=== PATIENT | male | born 1970 | race Caucasian/White ===

== ENCOUNTER 2017-12-20 13:43 | Inpatient (IN) | payer MEDICAID, OTHER ==
[~2017-12-20] VITALS: Ht 177.8 cm; Wt 138.0 kg
[~2017-12-20 13:43] MED LIST: ASPI-621 PO; ASPI300S PO; FURO-92 PO; LISI-170 PO; METF100P3 PO; METF500T4 PO; OMEG1CAP25 PO
[2017-12-20] MEDS ORDERED: ALBUTEROL/IPRATROPIUM 2.5MG/0.5MG, 3 ML ONE (14:22)
[2017-12-20] MEDS ORDERED: SODIUM CHLORIDE 0.9% 1,000ML IVBOLUS ONE (14:30)
[2017-12-20] MEDS ORDERED: ACETAMINOPHEN 500 MG TABLET PO ONE (14:30)
[2017-12-20] MEDS ORDERED: ALBUTEROL/IPRATROPIUM 2.5MG/0.5MG, 3 ML NPPB ONE (14:30)
[2017-12-20] MEDS ORDERED: SODIUM CHLORIDE FLUSH 10ML SYR IVF ONE (14:30)
[2017-12-20] MEDS ORDERED: ACETAMINOPHEN 500 MG TABLET ONE (14:31)
[2017-12-20 14:43] LABS: MEAN CORPUSCULAR HEMOGLOBIN 28.7 pg (27.5-34.5); MEAN CORPUSCULAR HGB CONC 33.1 g/dL (33.2-36.2); MEAN CORPUSCULAR VOLUME 86.9 fL (81-97); MEAN PLATELET VOLUME 7.6 fL (7.4-10.4); PLATELET COUNT 275 x10^3/uL (130-400); RED BLOOD COUNT 5.75 x10^6/uL (4.38-5.82); RED CELL DISTRIBUTION WIDTH 13.4 % (9.4-14.8)
[2017-12-20 14:44] LABS: INTERNATIONAL NORMALIZED RATIO 1.42 (0.93-1.1); PROTHROMBIN TIME 14.7 Seconds (9.6-11.5)
[2017-12-20 14:48] LABS: ALANINE AMINOTRANSFERASE 44 U/L (12-78); ALBUMIN 2.7 g/dL (3.4-5.0); ANION GAP 11 mmol/L (5-15); CALCIUM 7.9 mg/dL (8.5-10.1); CHLORIDE 93 mmol/L (98-107); CREATININE 1.41 mg/dL (0.7-1.3)
[2017-12-20 14:50] LABS: ALKALINE PHOSPHATASE 89 U/L (45-117); BILIRUBIN,TOTAL 3.3 mg/dL (0.2-1.0); TOTAL PROTEIN 7.9 g/dL (6.4-8.2)
[2017-12-20] MEDS ORDERED: CEFTRIAXONE PMX 2GM/50ML 50 ML ONE (14:59)
[2017-12-20 15:00] LABS: MD YES
[2017-12-20] MEDS ORDERED: CEFTRIAXONE PMX 2GM/50ML 50 ML IV SCH (15:00)
[2017-12-20] MEDS ORDERED: AZITHROMYCIN 500 MG in SODIUM CHLORIDE 0.9% 250 ML IV ONE (15:00)
[2017-12-20 15:03] LABS: BAND#(MANUAL) 1.89 x10^3/uL; BANDS%(MANUAL) 10 % (0-7); LYMPH#(MANUAL) 0.76 x10^3/uL (1-3.4); LYMPHS% (MANUAL) 4 % (22-44); MONOS#(MANUAL) 0.38 x10^3/uL (0.3-2.7); MONOS% (MANUAL) 2 % (2-9); POLYCHROMASIA 1+; SEG#(MANUAL) 15.88 x10^3/uL (1.8-6.8); SEGS% (MANUAL) 84 % (42-75)
[2017-12-20 15:04] LABS: <PLATELET ESTIMATE> ADEQUATE; <PLT MORPHOLOGY> NORMAL PLT MORPH; TOXIC GRAN 1+
[2017-12-20] MEDS: SODIUM CHLORIDE 0.9% 1,000 ML IV SCH ×2 (15:10→22:25)
[2017-12-20] MEDS ORDERED: LEVOFLOXACIN/PMX 750MG/150ML 150 ML IV SCH (15:30)
[2017-12-20] MEDS ORDERED: TEMAZEPAM 15 MG CAPSULE PO PRN (15:30)
[2017-12-20] MEDS ORDERED: SODIUM CHLORIDE 0.9% 3,050 ML IV ONE (15:30)
[2017-12-20] MEDS ORDERED: PHARMACY MAY ADJ FOR RENAL FX MC PRN (15:30)
[2017-12-20 16:42] VITALS: BP 110/75
[2017-12-20 16:53] VITALS: BP 110/75
[2017-12-20] MEDS: ENOXAPARIN 40 MG/0.4 ML SQ SCH (17:31)
[2017-12-20] MEDS: INSULIN LISPRO 100 UNITS/ML, PEN SQ-INSULIN SCH ×2 (17:44→20:19)
[2017-12-20 19:43] LABS: CULTURE INDICATED? YES; MICROSCOPIC INDICATED
[2017-12-20 20:12] VITALS: BP 124/82
[2017-12-20] MEDS ORDERED: ALBUTEROL/IPRATROPIUM 2.5MG/0.5MG, 3 ML NPPB PRN (20:30)
[2017-12-20] MEDS: ALBUTEROL/IPRATROPIUM 2.5MG/0.5MG, 3 ML NPPB SCH (20:35)
[2017-12-20] MEDS: ACETAMINOPHEN 325 MG TABLET PO PRN (22:27)
[2017-12-21 01:41] VITALS: BP 128/75
[2017-12-21 05:54] LABS: MEAN CORPUSCULAR HEMOGLOBIN 29.5 pg (27.5-34.5); MEAN CORPUSCULAR HGB CONC 33.6 g/dL (33.2-36.2); MEAN CORPUSCULAR VOLUME 87.8 fL (81-97); MEAN PLATELET VOLUME 7.3 fL (7.4-10.4); PLATELET COUNT 246 x10^3/uL (130-400); RED BLOOD COUNT 4.64 x10^6/uL (4.38-5.82); RED CELL DISTRIBUTION WIDTH 13.6 % (9.4-14.8)
[2017-12-21 05:58] LABS: ANION GAP 7 mmol/L (5-15); CALCIUM 7.3 mg/dL (8.5-10.1); CHLORIDE 100 mmol/L (98-107); CREATININE 0.97 mg/dL (0.7-1.3)
[2017-12-21 06:16] LABS: MD YES
[2017-12-21 06:18] LABS: BAND#(MANUAL) 1.04 x10^3/uL; BANDS%(MANUAL) 7 % (0-7); LYMPH#(MANUAL) 0.45 x10^3/uL (1-3.4); LYMPHS% (MANUAL) 3 % (22-44); MONOS% (MANUAL) 4 % (2-9); POLYCHROMASIA 1+; SEG#(MANUAL) 12.81 x10^3/uL (1.8-6.8); SEGS% (MANUAL) 86 % (42-75)
[2017-12-21 06:19] LABS: <PLATELET ESTIMATE> ADEQUATE; <PLT MORPHOLOGY> NORMAL PLT MORPH; TOXIC GRAN 1+
[2017-12-21] MEDS: INSULIN LISPRO 100 UNITS/ML, PEN SQ-INSULIN SCH ×4 (08:02→22:42)
[2017-12-21] MEDS: ASPIRIN 81 MG TABLET EC PO SCH (08:02)
[2017-12-21] MEDS: SODIUM CHLORIDE 0.9% 1,000 ML IV SCH ×2 (08:09→22:31)
[2017-12-21 08:37] VITALS: BP 121/79
[2017-12-21] MEDS: CEFTRIAXONE PMX 2GM/50ML 50 ML IV SCH (09:16)
[2017-12-21] MEDS: ACETAMINOPHEN 325 MG TABLET PO PRN (09:16)
[2017-12-21] MEDS: AZITHROMYCIN 500 MG in SODIUM CHLORIDE 0.9% 250 ML IV SCH (10:48)
[2017-12-21] MEDS: ALBUTEROL/IPRATROPIUM 2.5MG/0.5MG, 3 ML NPPB SCH ×3 (11:00→20:45)
[2017-12-21 15:16] VITALS: BP 148/81
[2017-12-21] MEDS: ENOXAPARIN 40 MG/0.4 ML SQ SCH (15:39)
[2017-12-21 19:18] VITALS: BP 131/83
[2017-12-22] MEDS: ALBUTEROL/IPRATROPIUM 2.5MG/0.5MG, 3 ML NPPB SCH ×5 (01:01→19:21)
[2017-12-22 02:32] VITALS: BP 125/79
[2017-12-22 05:16] LABS: MEAN CORPUSCULAR HEMOGLOBIN 29.1 pg (27.5-34.5); MEAN CORPUSCULAR HGB CONC 33.1 g/dL (33.2-36.2); MEAN CORPUSCULAR VOLUME 87.9 fL (81-97); MEAN PLATELET VOLUME 7.6 fL (7.4-10.4); PLATELET COUNT 275 x10^3/uL (130-400); RED BLOOD COUNT 4.79 x10^6/uL (4.38-5.82); RED CELL DISTRIBUTION WIDTH 13.6 % (9.4-14.8)
[2017-12-22 05:24] LABS: ANION GAP 7 mmol/L (5-15); CALCIUM 7.5 mg/dL (8.5-10.1); CHLORIDE 102 mmol/L (98-107)
[2017-12-22 05:28] LABS: ALANINE AMINOTRANSFERASE 34 U/L (12-78); ALKALINE PHOSPHATASE 79 U/L (45-117); BILIRUBIN,TOTAL 0.9 mg/dL (0.2-1.0)
[2017-12-22 05:51] LABS: MD YES
[2017-12-22 05:53] LABS: <RBC MORPHOLOGY> NORMAL; BAND#(MANUAL) 0.25 x10^3/uL; BANDS%(MANUAL) 2 % (0-7); LYMPH#(MANUAL) 1.85 x10^3/uL (1-3.4); LYMPHS% (MANUAL) 15 % (22-44); MONOS#(MANUAL) 0.62 x10^3/uL (0.3-2.7); MONOS% (MANUAL) 5 % (2-9); MYELOCYTES# (MANUAL) 0.12 x10^3/uL (0-0); MYELOCYTES% (MANUAL) 1 % (0-0); SEG#(MANUAL) 9.47 x10^3/uL (1.8-6.8); SEGS% (MANUAL) 77 % (42-75)
[2017-12-22 05:54] LABS: <PLATELET ESTIMATE> ADEQUATE; <PLT MORPHOLOGY> NORMAL PLT MORPH
[2017-12-22] MEDS: SODIUM CHLORIDE 0.9% 1,000 ML IV SCH (06:27)
[2017-12-22] MEDS: INSULIN LISPRO 100 UNITS/ML, PEN SQ-INSULIN SCH ×4 (07:11→22:23)
[2017-12-22 07:21] VITALS: BP 137/90
[2017-12-22] MEDS: ASPIRIN 81 MG TABLET EC PO SCH (07:41)
[2017-12-22 08:46] LABS: HEMOGLOBIN A1C 8.5 % (4.2-6.3)
[2017-12-22] MEDS: CEFTRIAXONE PMX 2GM/50ML 50 ML IV SCH (09:35)
[2017-12-22] MEDS: AZITHROMYCIN 500 MG in SODIUM CHLORIDE 0.9% 250 ML IV SCH (10:26)
[2017-12-22 13:02] VITALS: BP 137/87
[2017-12-22] MEDS: ENOXAPARIN 40 MG/0.4 ML SQ SCH (15:45)
[2017-12-22] MEDS ORDERED: POTASSIUM PHOSPHATE 44 MEQ in SODIUM CHLORIDE 0.9% 500 ML IV ONE (17:30)
[2017-12-22] MEDS ORDERED: MAGNESIUM SULFATE PMX 2GM/50ML 50 ML IV ONE (17:30)
[2017-12-22] MEDS ORDERED: POTASSIUM CHLORIDE 20 MEQ TAB.ER.PRT PO ONE (17:30)
[2017-12-22 19:04] VITALS: BP 146/91
[2017-12-23] MEDS: SODIUM CHLORIDE 0.9% 1,000 ML IV SCH ×2 (00:34→20:34)
[2017-12-23 01:23] VITALS: BP 121/79
[2017-12-23 05:11] LABS: ANION GAP 8 mmol/L (5-15); CALCIUM 7.2 mg/dL (8.5-10.1); CHLORIDE 104 mmol/L (98-107); CREATININE 0.64 mg/dL (0.7-1.3)
[2017-12-23] MEDS: INSULIN LISPRO 100 UNITS/ML, PEN SQ-INSULIN SCH ×4 (07:00→20:34)
[2017-12-23] MEDS: ALBUTEROL/IPRATROPIUM 2.5MG/0.5MG, 3 ML NPPB SCH ×4 (07:25→20:00)
[2017-12-23 08:06] VITALS: BP 150/82
[2017-12-23] MEDS: CEFTRIAXONE PMX 2GM/50ML 50 ML IV SCH (09:00)
[2017-12-23] MEDS: ASPIRIN 81 MG TABLET EC PO SCH (09:00)
[2017-12-23] MEDS: AZITHROMYCIN 500 MG in SODIUM CHLORIDE 0.9% 250 ML IV SCH (10:14)
[2017-12-23 12:41] VITALS: BP 132/74
[2017-12-23] MEDS: methylPREDNISolone SOD SUCC 125 MG/2 ML IVPush SCH ×2 (13:23→20:34)
[2017-12-23] MEDS: GUAIFENESIN 100 MG/5 ML, 10ML UDC PO SCH ×3 (13:23→21:00)
[2017-12-23] MEDS: ENOXAPARIN 40 MG/0.4 ML SQ SCH (16:20)
[2017-12-23 20:00] VITALS: BP 153/90
[2017-12-24 01:00] VITALS: BP 143/96
[2017-12-24] MEDS: methylPREDNISolone SOD SUCC 125 MG/2 ML IVPush SCH ×3 (01:35→13:35)
[2017-12-24] MEDS: ALBUTEROL/IPRATROPIUM 2.5MG/0.5MG, 3 ML NPPB SCH ×3 (01:40→11:00)
[2017-12-24] MEDS: SODIUM CHLORIDE 0.9% 1,000 ML IV SCH (06:29)
[2017-12-24] MEDS: ASPIRIN 81 MG TABLET EC PO SCH (08:23)
[2017-12-24] MEDS: GUAIFENESIN 100 MG/5 ML, 10ML UDC PO SCH (08:23)
[2017-12-24] MEDS: INSULIN LISPRO 100 UNITS/ML, PEN SQ-INSULIN SCH ×2 (08:24→12:02)
[2017-12-24] MEDS: CEFTRIAXONE PMX 2GM/50ML 50 ML IV SCH (08:26)
[2017-12-24 08:28] VITALS: BP 152/100
[2017-12-24] MEDS: AZITHROMYCIN 500 MG in SODIUM CHLORIDE 0.9% 250 ML IV SCH (10:52)
[2017-12-24 13:30] VITALS: BP 141/87
[2017-12-24] MEDS ORDERED: TIOT18CA INH (13:43)
[2017-12-24] MEDS ORDERED: GUAI600T80 PO (13:43)
[2017-12-24] MEDS ORDERED: PRED10TA PO (13:43)
[2017-12-24] MEDS ORDERED: IPRA3AMP NPPB (13:43)
[2017-12-24] MEDS ORDERED: AZIT500T PO (13:43)
[2017-12-24] MEDS ORDERED: FLUT1AER INH (13:43)
[2017-12-24] MEDS ORDERED: CEFD300C37 PO (13:43)
[2017-12-24 14:36] VITALS: BP 153/80
== END 2017-12-24 15:30 | disposition home or self-care (01) | DRG 871 ==
LOC: ED 15:09 → EDIP 15:10 → SUATTDRO 15:10 → 4NOR 16:35 → DCLOUNGE 12-24 15:17
PROVIDERS: ADMIT Hospitalist; ATTEND Internal Medicine
DX: A41.9 Sepsis, unspecified organism (principal); J15.9 Unspecified bacterial pneumonia; J96.01 Acute respiratory failure with hypoxia; N17.0 Acute kidney failure with tubular necrosis; J44.0 Chronic obstructive pulmonary disease with (acute) lower respiratory infection; N39.0 Urinary tract infection, site not specified; J44.1 Chronic obstructive pulmonary disease with (acute) exacerbation; E11.65 Type 2 diabetes mellitus with hyperglycemia; E83.39 Other disorders of phosphorus metabolism; E83.42 Hypomagnesemia; E87.6 Hypokalemia; I25.10 Atherosclerotic heart disease of native coronary artery without angina pectoris; R65.20 Severe sepsis without septic shock; Z80.1 Family history of malignant neoplasm of trachea, bronchus and lung; Z83.3 Family history of diabetes mellitus; Z87.891 Personal history of nicotine dependence; Z95.1 Presence of aortocoronary bypass graft
CPT/HCPCS: 36415; 71045; 80048; 80053; 81001; 82962; 83036; 83605; 83735; 84100; 84145; 85025; 85610; 85730; 87040; 87070; 87086; 87181; 87205; 93005; 94640; 96361; 96365; 96375; J0456; J0696; J1650; J1956; J7620; J1815; J2930; J3475; J7030; J7040; J7050

== ENCOUNTER 2018-10-19 18:52 | Inpatient (IN) | payer OTHER ==
[~2018-10-19] VITALS: Ht 177.8 cm; Wt 139.1 kg
[~2018-10-19 18:52] MED LIST changes: -ASPI-621 PO; +ASPI81TA45 PO; +AZIT500T PO; +CEFD300C37 PO; +FLUT1AER INH; +GUAI600T80 PO; +IPRA3AMP30 NPPB; +METF500T17 PO; -METF500T4 PO; +PRED10TA PO; +TIOT18CA INH
--- NOTE | 2018-10-19 19:15 | NUR ---
PT STATES HE HAS GAINED 20 POUNDS IN THE LAST TWO MONTHS WITH SOB WITH EXERTION
[2018-10-19] MEDS ORDERED: CLOP75TA PO (19:26)
[2018-10-19] MEDS ORDERED: DIGO125T PO (19:26)
[2018-10-19] MEDS ORDERED: GLYB5TAB3 PO (19:26)
[2018-10-19] MEDS ORDERED: CARV3.122 PO (19:26)
[2018-10-19] MEDS ORDERED: SPIR25TA5 PO (19:26)
[2018-10-19] MEDS ORDERED: METF500T17 PO (19:26)
[2018-10-19] MEDS ORDERED: SODIUM CHLORIDE 0.9% 1,000 ML IV ONE (19:27)
--- NOTE | 2018-10-19 19:27 | NUR ---
PA AT BEDSIDE. TAKEN OFF OXYGEN MOMENTARILY WITH OXYGEN SATURATION 88 PERCENT. PLACED BACK ON OXYGEN. PT SPEAKING IN FULL SENTENCES, MILD WOB NOTED
[2018-10-19] MEDS ORDERED: ALBUTEROL/IPRATROPIUM 2.5MG/0.5MG, 3 ML NPPB SCH (19:30)
[2018-10-19] MEDS ORDERED: ASPIRIN 81 MG TABLET CHEW PO ONE (19:30)
[2018-10-19] MEDS ORDERED: ALBUTEROL/IPRATROPIUM 2.5MG/0.5MG, 3 ML ONE (19:38)
[2018-10-19 20:00] LABS: BASOPHILS # (AUTO) 0.03 x10^3/uL (0-0.1); BASOPHILS % (AUTO) 1 % (0-1); EOSINOPHILS # (AUTO) 0.15 x10^3/uL (0-0.4); EOSINOPHILS % (AUTO) 2 % (1-7); LYMPHOCYTES # (AUTO) 1.06 x10^3/uL (1-3.4); LYMPHOCYTES % (AUTO) 18 % (22-44); MD NO; MEAN CORPUSCULAR HEMOGLOBIN 26.8 pg (27.5-34.5); MEAN CORPUSCULAR HGB CONC 31.4 g/dL (33.2-36.2); MEAN CORPUSCULAR VOLUME 85.2 fL (81-97); MEAN PLATELET VOLUME 7.5 fL (7.4-10.4); MONOCYTES # (AUTO) 0.41 x10^3/uL (0.2-0.8); MONOCYTES % (AUTO) 7 % (2-9); NEUTROPHILS # (AUTO) 4.31 x10^3/uL (1.8-6.8); NEUTROPHILS % (AUTO) 72 % (42-75); PLATELET COUNT 253 x10^3/uL (130-400); RED BLOOD COUNT 6.47 x10^6/uL (4.38-5.82); RED CELL DISTRIBUTION WIDTH 16.2 % (9.4-14.8)
[2018-10-19 20:01] LABS: ALBUMIN 3.2 g/dL (3.4-5.0); ANION GAP 1 mmol/L (5-15); CALCIUM 8.5 mg/dL (8.5-10.1); CHLORIDE 104 mmol/L (98-107); CREATININE 1.08 mg/dL (0.7-1.3)
[2018-10-19 20:05] LABS: TROPONIN I 0.116 ng/mL (0.000-0.045)
[2018-10-19] MEDS ORDERED: ASPIRIN 81 MG TABLET CHEW ONE (20:43)
--- NOTE | 2018-10-19 20:49 | NUR ---
PT AMBULATED TO BATHROOM WITH MILD SOB WITH EXERTION. MEDICATED PER ORDERS WITH FLUIDS INFUSING. REPORT TO CUCO AGRAWAL
--- NOTE | 2018-10-19 20:52 | NUR ---
RECEIVED REPORT FROM KAYCEE AGRAWAL. CARE ASSUMED. PT RESTING IN POSITION OF COMFORT. DENIES ANY PAIN AND NEED TO USE RESTROOM. VSS. AWAITING RECHECK. A&OX4. SR ON MONITOR. CALL LIGHT IN REACH. FALL PRECAUTIONS IN PLACE.
--- NOTE | 2018-10-19 21:00 | NUR ---
DR. BURT AT BEDSIDE FOR RECHECK, DISCUSSING POC. PT TO BE ADMITTED TO HOSPITAL VERBALIZED UNDERSTANDING AND AGREES TO POC. IVF DISCONTINUED AT THIS TIME PER DR. BURT. VSS. CALL LIGHT IN REACH
[2018-10-19] MEDS ORDERED: FUROSEMIDE 40 MG/4 ML ONE (21:08)
--- NOTE | 2018-10-19 21:16 | NUR ---
PT MEDICATED NOTED PER MD ORDER WITH IV LASIX, URINAL LEFT PER PT REQUEST, TO CALL FOR ASSISTANCE. RESTING COMFORTABLY WATCHING TV. VSS. CALL LIGHT IN REACH. SR ON MONITOR.
[2018-10-19] MEDS ORDERED: FUROSEMIDE 40 MG/4 ML IV ONE (21:30)
[2018-10-19] MEDS ORDERED: SODIUM CHLORIDE FLUSH 10ML SYR IVF PRN (21:30)
--- NOTE | 2018-10-19 22:04 | NUR ---
ADMITTING PROVIDER AT BEDSIDE FOR EVALUATION. PT RESTING IN POSITION OF COMFORT. VSS. CALL LIGHT IN REACH. DENIES ANY PAIN AND NEED TO USE RESTROOM. SR ON MONITOR.
--- NOTE | 2018-10-19 22:07 | NUR ---
PT CALLED, MD OWENS COMPLETED. PT REQUESTING URINAL, 500ML URINE OUTPUT, RESTING COMFORTABLY BACK IN BED. CALL LIGHT IN REACH.
--- NOTE | 2018-10-19 22:35 | NUR ---
PT ASSISTED WITH URINAL, 500ML OUTPUT. CALL LIGHT IN REACH. RESTING COMFORTABLY. VSS.
--- NOTE | 2018-10-19 23:00 | NUR ---
PT ASSISTED WITH URINAL 600ML OUTPUT. VSS. CALL LIGHT IN REACH. ALL NEEDS MET AND ADDRESSED
--- NOTE | 2018-10-19 23:20 | NUR ---
PT SLEEPING,RESP REGULAR AND UNLABORED. VSS. CALL LIGHT IN REACH. FALL PRECAUTIONS IN PLACE. ROOM RECEIVED ON FLOOR, 522-2.
--- NOTE | 2018-10-19 23:27 | NUR ---
VERBAL/PHONE TO MITESH AGRAWAL FOR ROOM 522-2. PT AWAITING TRANSPORT.
[2018-10-19 23:56] VITALS: BP 159/90
[2018-10-20] MEDS ORDERED: ACETAMINOPHEN 325 MG TABLET PO PRN
[2018-10-20] MEDS ORDERED: hydrALAzine 20 MG/ML, 1ML IVPush PRN
[2018-10-20] MEDS ORDERED: POLYETHYLENE GLYCOL 17 GM PACKET PO PRN
[2018-10-20] MEDS ORDERED: FURO40TA6 PO (00:14)
[2018-10-20] MEDS: ENOXAPARIN 40 MG/0.4 ML SQ SCH (00:32)
[2018-10-20 00:56] LABS: TROPONIN I 0.109 ng/mL (0.000-0.045)
[2018-10-20 02:14] VITALS: BP 152/94
[2018-10-20 06:00] LABS: ANION GAP 5 mmol/L (5-15); CALCIUM 8.2 mg/dL (8.5-10.1); CHLORIDE 102 mmol/L (98-107)
[2018-10-20 06:04] LABS: MEAN CORPUSCULAR HEMOGLOBIN 26.5 pg (27.5-34.5); MEAN CORPUSCULAR HGB CONC 31.4 g/dL (33.2-36.2); MEAN CORPUSCULAR VOLUME 84.5 fL (81-97); MEAN PLATELET VOLUME 7.5 fL (7.4-10.4); PLATELET COUNT 222 x10^3/uL (130-400); RED BLOOD COUNT 6.55 x10^6/uL (4.38-5.82); RED CELL DISTRIBUTION WIDTH 15.9 % (9.4-14.8)
[2018-10-20] MEDS: CARVEDILOL 3.125 MG TABLET PO SCH ×2 (06:04→16:11)
[2018-10-20 06:05] LABS: CREATININE 0.93 mg/dL (0.7-1.3); TROPONIN I 0.071 ng/mL (0.000-0.045)
[2018-10-20 06:56] LABS: BASOPHILS % (AUTO) 0 % (0-1); EOSINOPHILS # (AUTO) 0.01 x10^3/uL (0-0.4); EOSINOPHILS % (AUTO) 0 % (1-7); LYMPHOCYTES # (AUTO) 0.43 x10^3/uL (1-3.4); LYMPHOCYTES % (AUTO) 9 % (22-44); MD SCAN; MONOCYTES # (AUTO) 0.03 x10^3/uL (0.2-0.8); MONOCYTES % (AUTO) 1 % (2-9); NEUTROPHILS # (AUTO) 4.52 x10^3/uL (1.8-6.8); NEUTROPHILS % (AUTO) 91 % (42-75)
[2018-10-20 07:52] VITALS: BP 121/75
[2018-10-20] MEDS: FUROSEMIDE 40 MG/4 ML IV SCH ×2 (08:19→21:09)
[2018-10-20] MEDS: ASPIRIN 81 MG TABLET EC PO SCH (08:22)
[2018-10-20] MEDS: SPIRONOLACTONE 25 MG TABLET PO SCH (08:22)
[2018-10-20] MEDS: DIGOXIN 0.125 MG TABLET PO SCH (08:22)
[2018-10-20] MEDS: LISINOPRIL 5 MG TABLET PO SCH (08:22)
[2018-10-20] MEDS: CLOPIDOGREL 75 MG TABLET PO SCH (08:23)
[2018-10-20] MEDS: INSULIN LISPRO 100 UNITS/ML, PEN SQ-INSULIN SCH ×2 (08:27→12:17)
[2018-10-20] MEDS ORDERED: POTASSIUM CHLORIDE 20 MEQ TAB.ER.PRT PO SCH (09:00)
[2018-10-20] MEDS ORDERED: ALBUTEROL/IPRATROPIUM 2.5MG/0.5MG, 3 ML ONE (11:27)
[2018-10-20 13:58] VITALS: BP 128/83
[2018-10-20] MEDS: MAGNESIUM SULFATE 4 GM in SODIUM CHLORIDE 0.9% 100 ML IV ONE ×2 (14:08→14:09)
[2018-10-20 14:58] LABS: HEMOGLOBIN A1C 6.9 % (4.2-6.3)
[2018-10-20] MEDS: ALBUTEROL/IPRATROPIUM 2.5MG/0.5MG, 3 ML NPPB SCH ×2 (15:00→19:28)
[2018-10-20] MEDS ORDERED: INSULIN GLARGINE 100 UNITS/ML, PEN SQ-INSULIN SCH (21:00)
[2018-10-20 21:06] VITALS: BP 105/75
[2018-10-20] MEDS: MAGNESIUM OXIDE 400 MG TABLET PO SCH (21:09)
[2018-10-21 00:06] VITALS: BP 100/62
[2018-10-21] MEDS: ENOXAPARIN 40 MG/0.4 ML SQ SCH (00:09)
[2018-10-21] MEDS: CARVEDILOL 3.125 MG TABLET PO SCH (06:12)
[2018-10-21 06:18] LABS: ANION GAP 3 mmol/L (5-15); CALCIUM 8.4 mg/dL (8.5-10.1); CHLORIDE 101 mmol/L (98-107)
[2018-10-21 06:24] LABS: CHOL/HDL RATIO 5.2; CHOLESTEROL, TOTAL 206 mg/dL (140-239); CREATININE 0.89 mg/dL (0.7-1.3); HDL CHOL % 19 % (26-37); HDL CHOLESTEROL (DIRECT) 40 mg/dL (40-60); LDL CHOLESTEROL,CALCULATED 137 mg/dL (54-169); LDL/HDL RATIO 3.4 (0.5-3.0); TRIGLYCERIDES 146 mg/dL (50-200); VLDL CHOLESTEROL 29 mg/dL (0-25)
[2018-10-21] MEDS: ALBUTEROL/IPRATROPIUM 2.5MG/0.5MG, 3 ML NPPB SCH ×3 (07:00→15:05)
[2018-10-21] MEDS ORDERED: REGADENOSON 0.4 MG/5 ML SYRINGE ONE (08:04)
[2018-10-21 09:50] VITALS: BP 127/86
[2018-10-21] MEDS: SPIRONOLACTONE 25 MG TABLET PO SCH (10:24)
[2018-10-21] MEDS: FUROSEMIDE 40 MG/4 ML IV SCH (10:24)
[2018-10-21] MEDS: LISINOPRIL 5 MG TABLET PO SCH (10:25)
[2018-10-21] MEDS: DIGOXIN 0.125 MG TABLET PO SCH (10:25)
[2018-10-21] MEDS: MAGNESIUM OXIDE 400 MG TABLET PO SCH (10:25)
[2018-10-21] MEDS: CLOPIDOGREL 75 MG TABLET PO SCH (10:25)
[2018-10-21] MEDS: ASPIRIN 81 MG TABLET EC PO SCH (10:25)
[2018-10-21] MEDS ORDERED: FURO40TA6 PO (13:01)
[2018-10-21] MEDS ORDERED: POTA20TA14 PO (13:01)
[2018-10-21] MEDS ORDERED: ATOR40TA78 PO (13:01)
[2018-10-21] MEDS ORDERED: MAGN400T50 PO (13:04)
[2018-10-21 13:45] VITALS: BP 107/63
== END 2018-10-21 16:50 | disposition home or self-care (01) | DRG 291 ==
LOC: ED 20:12 → EDIP 21:19 → 5SO 23:48 → DCLOUNGE 10-21 16:34
PROVIDERS: ADMIT Family Medicine; ATTEND Family Medicine
DX: I11.0 Hypertensive heart disease with heart failure (principal); J96.01 Acute respiratory failure with hypoxia; Z68.41 Body mass index [BMI] 40.0-44.9, adult; I47.2 Ventricular tachycardia; J44.1 Chronic obstructive pulmonary disease with (acute) exacerbation; E11.65 Type 2 diabetes mellitus with hyperglycemia; I50.43 Acute on chronic combined systolic (congestive) and diastolic (congestive) heart failure; I50.1 Left ventricular failure, unspecified; E66.01 Morbid (severe) obesity due to excess calories; E78.5 Hyperlipidemia, unspecified; E83.42 Hypomagnesemia; I25.10 Atherosclerotic heart disease of native coronary artery without angina pectoris; Z82.49 Family history of ischemic heart disease and other diseases of the circulatory system; Z83.3 Family history of diabetes mellitus; Z87.01 Personal history of pneumonia (recurrent); Z87.891 Personal history of nicotine dependence; Z95.1 Presence of aortocoronary bypass graft; Z79.899 Other long term (current) drug therapy
CPT/HCPCS: 36415; 99285; J7620; 71045; 78452; 80048; 80061; 82040; 82962; 83036; 83735; 83880; 84100; 84484; 85025; 93005; 93017; 93306; 94640; 96361; 96374; G0378; J1650; J1940; J2785; J3475; A9502; C9898; J1815; J7030; J7512

== ENCOUNTER 2019-02-20 16:06 | Inpatient (IN) | payer OTHER ==
[~2019-02-20] VITALS: Ht 177.8 cm; Wt 145.2 kg
[~2019-02-20 16:06] MED LIST changes: +ATOR40TA78 PO; +CARV3.122 PO; +CLOP75TA PO; +DIGO125T PO; +FURO40TA6 PO; +GLYB5TAB3 PO; +MAGN400T50 PO; +POTA20TA14 PO; +SPIR25TA5 PO
[2019-02-20] MEDS ORDERED: FUROSEMIDE 40 MG/4 ML ONE (16:45)
[2019-02-20 16:58] LABS: ALANINE AMINOTRANSFERASE 21 U/L (12-78); ALBUMIN 3.1 g/dL (3.4-5.0); ANION GAP 4 mmol/L (5-15); CALCIUM 8.4 mg/dL (8.5-10.1); CHLORIDE 98 mmol/L (98-107); CREATININE 1.14 mg/dL (0.7-1.3)
[2019-02-20] MEDS ORDERED: FUROSEMIDE 40 MG/4 ML IVP ONE (17:00)
[2019-02-20 17:03] LABS: ALKALINE PHOSPHATASE 93 U/L (45-117); BILIRUBIN,TOTAL 1.3 mg/dL (0.2-1.0); TOTAL PROTEIN 6.8 g/dL (6.4-8.2); TROPONIN I 0.068 ng/mL (0.000-0.045)
[2019-02-20] MEDS ORDERED: ALBUTEROL/IPRATROPIUM 2.5MG/0.5MG, 3 ML ONE (17:05)
[2019-02-20 17:22] LABS: MEAN CORPUSCULAR HGB CONC 30.4 g/dL (33.2-36.2); MEAN CORPUSCULAR VOLUME 88.9 fL (81-97); MEAN PLATELET VOLUME 7.4 fL (7.4-10.4); PLATELET COUNT 260 x10^3/uL (130-400); RED BLOOD COUNT 6.07 x10^6/uL (4.38-5.82); RED CELL DISTRIBUTION WIDTH 18.8 % (9.4-14.8)
[2019-02-20 17:26] LABS: MD YES
[2019-02-20 17:28] LABS: BASOS#(MANUAL) 0.06 x10^3/uL (0-0.1); BASOS% (MANUAL) 1 % (0-1); EOS% (MANUAL) 5 % (1-7); LYMPH#(MANUAL) 0.71 x10^3/uL (1-3.4); LYMPHS% (MANUAL) 12 % (22-44)
[2019-02-20 17:29] LABS: MONOS#(MANUAL) 0.41 x10^3/uL (0.3-2.7); MONOS% (MANUAL) 7 % (2-9); SEG#(MANUAL) 4.43 x10^3/uL (1.8-6.8); SEGS% (MANUAL) 75 % (42-75)
[2019-02-20 17:30] LABS: <PLATELET ESTIMATE> ADEQUATE; ANISOCYTOSIS 1+; LARGE PLATELETS 1+
[2019-02-20] MEDS ORDERED: ASPIRIN 81 MG TABLET CHEW PO ONE (17:30)
[2019-02-20] MEDS ORDERED: ASPIRIN 81 MG TABLET CHEW ONE (17:34)
[2019-02-20] MEDS ORDERED: POTASSIUM CHLORIDE (18:15)
[2019-02-20 18:39] LABS: MICROSCOPIC NOT IND
[2019-02-20 18:58] LABS: CULTURE INDICATED? NO
[2019-02-20 19:30] VITALS: BP 116/78
[2019-02-20] MEDS ORDERED: TEMAZEPAM 15 MG CAPSULE PO PRN (21:30)
[2019-02-20] MEDS ORDERED: MAGNESIUM SULFATE 4 GM in SODIUM CHLORIDE 0.9% 100 ML IV ONE (21:30)
[2019-02-20] MEDS ORDERED: ATORVASTATIN 40 MG TABLET PO SCH (21:30)
[2019-02-20] MEDS ORDERED: ENALAPRILAT 1.25 MG/ML, 2ML IVPush PRN (21:30)
[2019-02-20] MEDS ORDERED: DOCUSATE 100 MG CAPSULE PO PRN (21:30)
[2019-02-20] MEDS ORDERED: ACETAMINOPHEN 325 MG TABLET PO PRN (21:30)
[2019-02-20] MEDS ORDERED: MAGNESIUM SULFATE PMX 4GM/100M 100 ML IV ONE (22:00)
[2019-02-20] MEDS: INSULIN LISPRO 100 UNITS/ML, PEN SQ-INSULIN SCH (22:00)
[2019-02-20] MEDS: ENOXAPARIN 40 MG/0.4 ML SQ SCH (22:20)
[2019-02-20] MEDS: CARVEDILOL 3.125 MG TABLET PO SCH (22:20)
[2019-02-20] MEDS: ATORVASTATIN 40 MG TABLET PO SCH (22:20)
[2019-02-20 22:40] VITALS: BP 116/78
[2019-02-20 22:42] LABS: TROPONIN I 0.085 ng/mL (0.000-0.045)
[2019-02-21 02:00] VITALS: BP 123/81
[2019-02-21] MEDS ORDERED: ALBUTEROL SULFATE 2.5 MG/3 ML ONE (02:30)
[2019-02-21] MEDS ORDERED: ALBUTEROL SULFATE 2.5 MG/3 ML NPPB PRN (02:30)
[2019-02-21 05:43] LABS: ANION GAP 3 mmol/L (5-15); CALCIUM 8.6 mg/dL (8.5-10.1); CHLORIDE 98 mmol/L (98-107)
[2019-02-21 05:47] LABS: TROPONIN I 0.089 ng/mL (0.000-0.045)
[2019-02-21 06:16] LABS: BASOPHILS # (AUTO) 0.01 x10^3/uL (0-0.1); BASOPHILS % (AUTO) 0 % (0-1); EOSINOPHILS % (AUTO) 4 % (1-7); LYMPHOCYTES # (AUTO) 0.89 x10^3/uL (1-3.4); LYMPHOCYTES % (AUTO) 17 % (22-44); MD SCAN; MEAN CORPUSCULAR HEMOGLOBIN 27.1 pg (27.5-34.5); MEAN CORPUSCULAR HGB CONC 30.4 g/dL (33.2-36.2); MEAN CORPUSCULAR VOLUME 89.2 fL (81-97); MEAN PLATELET VOLUME 7.2 fL (7.4-10.4); MONOCYTES # (AUTO) 0.45 x10^3/uL (0.2-0.8); MONOCYTES % (AUTO) 9 % (2-9); NEUTROPHILS # (AUTO) 3.58 x10^3/uL (1.8-6.8); NEUTROPHILS % (AUTO) 70 % (42-75); PLATELET COUNT 232 x10^3/uL (130-400); RED BLOOD COUNT 6.07 x10^6/uL (4.38-5.82); RED CELL DISTRIBUTION WIDTH 18.5 % (9.4-14.8)
[2019-02-21] MEDS: ALBUTEROL SULFATE 2.5 MG/3 ML NPPB SCH ×4 (06:40→19:30)
[2019-02-21] MEDS: INSULIN LISPRO 100 UNITS/ML, PEN SQ-INSULIN SCH ×4 (07:30→21:04)
[2019-02-21 07:54] VITALS: BP 141/93
[2019-02-21] MEDS: ASPIRIN 81 MG TABLET EC PO SCH (08:26)
[2019-02-21] MEDS: DIGOXIN 0.125 MG TABLET PO SCH (08:26)
[2019-02-21] MEDS: SPIRONOLACTONE 25 MG TABLET PO SCH (08:26)
[2019-02-21] MEDS: CLOPIDOGREL 75 MG TABLET PO SCH (08:26)
[2019-02-21] MEDS: CARVEDILOL 3.125 MG TABLET PO SCH ×2 (08:27→20:58)
[2019-02-21] MEDS: FUROSEMIDE 40 MG/4 ML IV SCH ×2 (09:45→22:22)
[2019-02-21 12:43] VITALS: BP 142/90
[2019-02-21] MEDS: methylPREDNISolone SOD SUCC 125 MG/2 ML IVPush SCH ×2 (17:43→22:22)
[2019-02-21 19:30] VITALS: BP 137/97
[2019-02-21] MEDS: ENOXAPARIN 40 MG/0.4 ML SQ SCH (20:58)
[2019-02-21] MEDS: ATORVASTATIN 40 MG TABLET PO SCH (20:59)
[2019-02-21 22:21] VITALS: BP 147/90
[2019-02-22 02:34] VITALS: BP 142/85
[2019-02-22] MEDS: methylPREDNISolone SOD SUCC 125 MG/2 ML IVPush SCH ×4 (05:24→23:38)
[2019-02-22] MEDS: ALBUTEROL SULFATE 2.5 MG/3 ML NPPB SCH ×4 (07:00→19:16)
[2019-02-22 07:59] LABS: MEAN CORPUSCULAR HEMOGLOBIN 26.2 pg (27.5-34.5); MEAN CORPUSCULAR VOLUME 87.5 fL (81-97); MEAN PLATELET VOLUME 7.3 fL (7.4-10.4); PLATELET COUNT 223 x10^3/uL (130-400); RED BLOOD COUNT 6.48 x10^6/uL (4.38-5.82); RED CELL DISTRIBUTION WIDTH 18.1 % (9.4-14.8)
[2019-02-22 08:00] LABS: ANION GAP 6 mmol/L (5-15); CALCIUM 8.7 mg/dL (8.5-10.1); CHLORIDE 94 mmol/L (98-107); CREATININE 0.92 mg/dL (0.7-1.3)
[2019-02-22 08:03] LABS: TROPONIN I 0.029 ng/mL (0.000-0.045)
[2019-02-22 08:07] LABS: BASOPHILS % (AUTO) 0 % (0-1); EOSINOPHILS % (AUTO) 0 % (1-7); LYMPHOCYTES # (AUTO) 0.32 x10^3/uL (1-3.4); LYMPHOCYTES % (AUTO) 6 % (22-44); MD SCAN; MONOCYTES # (AUTO) 0.03 x10^3/uL (0.2-0.8); MONOCYTES % (AUTO) 1 % (2-9); NEUTROPHILS # (AUTO) 4.99 x10^3/uL (1.8-6.8); NEUTROPHILS % (AUTO) 93 % (42-75)
[2019-02-22 08:12] VITALS: BP 142/87
[2019-02-22] MEDS: CLOPIDOGREL 75 MG TABLET PO SCH (08:14)
[2019-02-22] MEDS: SPIRONOLACTONE 25 MG TABLET PO SCH (08:14)
[2019-02-22] MEDS: ASPIRIN 81 MG TABLET EC PO SCH (08:14)
[2019-02-22] MEDS: DIGOXIN 0.125 MG TABLET PO SCH (08:14)
[2019-02-22] MEDS: CARVEDILOL 3.125 MG TABLET PO SCH ×2 (08:14→21:26)
[2019-02-22] MEDS: INSULIN LISPRO 100 UNITS/ML, PEN SQ-INSULIN SCH ×4 (08:15→21:34)
[2019-02-22] MEDS: FUROSEMIDE 40 MG/4 ML IV SCH ×2 (08:16→21:26)
[2019-02-22 12:36] VITALS: BP 158/98
[2019-02-22 19:51] VITALS: BP 137/86
[2019-02-22] MEDS: ATORVASTATIN 40 MG TABLET PO SCH (21:26)
[2019-02-22] MEDS: ENOXAPARIN 40 MG/0.4 ML SQ SCH (21:34)
[2019-02-23 02:41] VITALS: BP 149/96
[2019-02-23] MEDS: methylPREDNISolone SOD SUCC 125 MG/2 ML IVPush SCH ×4 (05:25→23:08)
[2019-02-23 05:36] LABS: ALANINE AMINOTRANSFERASE 18 U/L (12-78); ALBUMIN 3.3 g/dL (3.4-5.0); ANION GAP 3 mmol/L (5-15); CHLORIDE 96 mmol/L (98-107); CREATININE 0.87 mg/dL (0.7-1.3)
[2019-02-23 05:38] LABS: ALKALINE PHOSPHATASE 72 U/L (45-117); BILIRUBIN,TOTAL 1.2 mg/dL (0.2-1.0); TOTAL PROTEIN 6.7 g/dL (6.4-8.2)
[2019-02-23 05:54] LABS: MEAN CORPUSCULAR HEMOGLOBIN 26.2 pg (27.5-34.5); MEAN CORPUSCULAR HGB CONC 30.2 g/dL (33.2-36.2); MEAN CORPUSCULAR VOLUME 86.6 fL (81-97); MEAN PLATELET VOLUME 7.5 fL (7.4-10.4); PLATELET COUNT 227 x10^3/uL (130-400); RED BLOOD COUNT 6.36 x10^6/uL (4.38-5.82); RED CELL DISTRIBUTION WIDTH 17.7 % (9.4-14.8)
[2019-02-23 06:35] LABS: BASOPHILS % (AUTO) 0 % (0-1); EOSINOPHILS % (AUTO) 0 % (1-7); LYMPHOCYTES # (AUTO) 0.26 x10^3/uL (1-3.4); LYMPHOCYTES % (AUTO) 3 % (22-44); MD SCAN; MONOCYTES # (AUTO) 0.07 x10^3/uL (0.2-0.8); MONOCYTES % (AUTO) 1 % (2-9); NEUTROPHILS # (AUTO) 7.28 x10^3/uL (1.8-6.8); NEUTROPHILS % (AUTO) 96 % (42-75)
[2019-02-23 06:44] VITALS: BP 157/81
[2019-02-23] MEDS: ALBUTEROL SULFATE 2.5 MG/3 ML NPPB SCH ×4 (07:40→19:21)
[2019-02-23] MEDS: SPIRONOLACTONE 25 MG TABLET PO SCH (08:09)
[2019-02-23] MEDS: ASPIRIN 81 MG TABLET EC PO SCH (08:09)
[2019-02-23] MEDS: CARVEDILOL 3.125 MG TABLET PO SCH ×2 (08:09→20:13)
[2019-02-23] MEDS: FUROSEMIDE 40 MG/4 ML IV SCH ×2 (08:09→20:14)
[2019-02-23] MEDS: INSULIN LISPRO 100 UNITS/ML, PEN SQ-INSULIN SCH ×4 (08:09→20:26)
[2019-02-23] MEDS: CLOPIDOGREL 75 MG TABLET PO SCH (09:40)
[2019-02-23 13:05] VITALS: BP 138/81
[2019-02-23 20:09] VITALS: BP 125/74
[2019-02-23] MEDS: ATORVASTATIN 40 MG TABLET PO SCH (20:13)
[2019-02-23] MEDS: ENOXAPARIN 40 MG/0.4 ML SQ SCH (20:16)
[2019-02-24 01:55] VITALS: BP 151/80
[2019-02-24 05:31] LABS: MEAN CORPUSCULAR HEMOGLOBIN 26.1 pg (27.5-34.5); MEAN CORPUSCULAR HGB CONC 30.1 g/dL (33.2-36.2); MEAN CORPUSCULAR VOLUME 86.9 fL (81-97); MEAN PLATELET VOLUME 7.6 fL (7.4-10.4); PLATELET COUNT 237 x10^3/uL (130-400); RED BLOOD COUNT 6.63 x10^6/uL (4.38-5.82); RED CELL DISTRIBUTION WIDTH 17.7 % (9.4-14.8)
[2019-02-24 05:35] LABS: ALANINE AMINOTRANSFERASE 22 U/L (12-78); ALBUMIN 3.2 g/dL (3.4-5.0); ANION GAP 4 mmol/L (5-15); CALCIUM 8.8 mg/dL (8.5-10.1); CHLORIDE 94 mmol/L (98-107); CREATININE 0.96 mg/dL (0.7-1.3)
[2019-02-24 05:38] LABS: ALKALINE PHOSPHATASE 67 U/L (45-117); BILIRUBIN,TOTAL 1.4 mg/dL (0.2-1.0); TOTAL PROTEIN 6.7 g/dL (6.4-8.2)
[2019-02-24] MEDS: methylPREDNISolone SOD SUCC 125 MG/2 ML IVPush SCH ×2 (05:48→11:30)
[2019-02-24 06:30] LABS: BASOPHILS % (AUTO) 0 % (0-1); EOSINOPHILS % (AUTO) 0 % (1-7); LYMPHOCYTES # (AUTO) 0.27 x10^3/uL (1-3.4); LYMPHOCYTES % (AUTO) 4 % (22-44); MD SCAN; MONOCYTES # (AUTO) 0.08 x10^3/uL (0.2-0.8); MONOCYTES % (AUTO) 1 % (2-9); NEUTROPHILS # (AUTO) 7.14 x10^3/uL (1.8-6.8); NEUTROPHILS % (AUTO) 95 % (42-75)
[2019-02-24 07:04] VITALS: BP 156/106
[2019-02-24] MEDS: ALBUTEROL SULFATE 2.5 MG/3 ML NPPB SCH (08:19)
[2019-02-24] MEDS: INSULIN LISPRO 100 UNITS/ML, PEN SQ-INSULIN SCH ×2 (08:31→11:32)
[2019-02-24] MEDS: CARVEDILOL 3.125 MG TABLET PO SCH (08:32)
[2019-02-24] MEDS: ASPIRIN 81 MG TABLET EC PO SCH (08:32)
[2019-02-24] MEDS: FUROSEMIDE 40 MG/4 ML IV SCH (08:32)
[2019-02-24] MEDS: CLOPIDOGREL 75 MG TABLET PO SCH (08:32)
[2019-02-24] MEDS: SPIRONOLACTONE 25 MG TABLET PO SCH (08:32)
[2019-02-24] MEDS ORDERED: POTA20PA25 PO (11:15)
== END 2019-02-24 14:35 | disposition home or self-care (01) | DRG 291 ==
LOC: ED 16:44 → UNDOADMOB 17:44 → EDIP 17:44 → INTOOBSV 17:44 → 5SO 18:35 → EDIP 18:35 → 5SO 02-24 09:43 → OBSVTOIN 02-24 09:44 → DCLOUNGE 02-24 14:05
PROVIDERS: ADMIT Internal Medicine; ATTEND Internal Medicine
DX: I11.0 Hypertensive heart disease with heart failure (principal); J96.21 Acute and chronic respiratory failure with hypoxia; J44.1 Chronic obstructive pulmonary disease with (acute) exacerbation; Z68.42 Body mass index [BMI] 45.0-49.9, adult; E11.9 Type 2 diabetes mellitus without complications; I50.33 Acute on chronic diastolic (congestive) heart failure; E66.01 Morbid (severe) obesity due to excess calories; G47.33 Obstructive sleep apnea (adult) (pediatric); I25.10 Atherosclerotic heart disease of native coronary artery without angina pectoris; N50.89 Other specified disorders of the male genital organs; Z83.3 Family history of diabetes mellitus; Z87.891 Personal history of nicotine dependence; Z95.1 Presence of aortocoronary bypass graft; Z99.81 Dependence on supplemental oxygen
CPT/HCPCS: 36415; 71045; 80048; 80053; 81003; 82040; 82962; 83036; 83690; 83735; 83880; 84100; 84484; 85025; 93005; 93306; 94640; 96374; 99291; G0378; J1650; J1940; J7613; J1815; J2930; J3475